=== PATIENT | female | born 1960 | race American Indian/Alaskan Native ===

== ENCOUNTER → 2018-09-01 | Outpatient (CLI) | payer BC, OTHER | LOC: DL.MRI 10:23 | PROVIDERS: ATTEND General Practice | DX: M25.571 Pain in right ankle and joints of right foot (principal); S93.491A Sprain of other ligament of right ankle, initial encounter; M65.871 Other synovitis and tenosynovitis, right ankle and foot; R60.0 Localized edema; M85.671 Other cyst of bone, right ankle and foot; X58.XXXA Exposure to other specified factors, initial encounter | CPT/HCPCS: 73721-RT ==

== ENCOUNTER 2020-02-25 11:43 | Inpatient (IN) | payer BC, OTHER ==
--- NOTE | 2020-02-25 12:10 | EDM.PDOC ---
ED HPI GENERAL MEDICAL PROBLEM - General Stated Complaint: AMBULANCE Time Seen by Provider: 02/25/20 11:58 Source of Information: Reports: Patient History Limitations: Reports: No Limitations - History of Present Illness INITIAL COMMENTS - FREE TEXT/NARRATIVE: This 59 yo male patient was brought to the ED by [facility] due to increased shortness of breath. The patient reports she was diagnosed with COVID on 02/14/20, but has had increased shortness of breath over the past 5 days. The patient reports she has not been able to catch her breath due to a constant cough. EMS reports the patient's oxygen level was 91% on room air. The patient's oxygen level has been 97% on 2 lpm via NC. Onset Date: 02/21/20 Duration: Constant, Getting Worse Location: Reports: Chest Quality: Reports: Other Severity: Severe Improves with: Reports: None Worsens with: Reports: None Context: Reports: Other Associated Symptoms: Reports: Cough, Shortness of Breath Generalized Pain Score (Numeric/FACES): 8 - Related Data Allergies Allergy/AdvReac Type Severity Reaction Status Date / Time No Known Allergies Allergy Verified 02/25/20 11:55 Past Medical History HEENT History: Reports: Impaired Vision Cardiovascular History: Reports: Hypertension - Past Surgical History Musculoskeletal Surgical History: Reports: Knee Replacement Social & Family History - Tobacco Use Tobacco Use Status *Q: Never Tobacco User Second Hand Smoke Exposure: No - Caffeine Use Caffeine Use: Reports: None - Recreational Drug Use Recreational Drug Use: No ED ROS GENERAL - Review of Systems Review Of Systems: Comprehensive ROS is negative, except as noted in HPI. ED EXAM, GENERAL - Physical Exam Exam: See Below Exam Limited By: No Limitations General Appearance: Alert, WD/WN, Moderate Distress Eye Exam: Bilateral Eye: EOMI, Normal Inspection, PERRL Ears: Normal External Exam, Normal Canal, Hearing Grossly Normal, Normal TMs Nose: Normal Inspection, Normal Mucosa, No Blood Throat/Mouth: Normal Inspection, Normal Lips, Normal Teeth, Normal Gums, Normal Oropharynx, Normal Voice, No Airway Compromise Head: Atraumatic, Normocephalic Neck: Normal Inspection, Supple, Non-Tender, Full Range of Motion Respiratory/Chest: Decreased Breath Sounds (throughout lung voss) Cardiovascular: Normal Peripheral Pulses, Regular Rate, Rhythm, No Edema, No Gallop, No JVD, No Murmur, No Rub GI/Abdominal: Normal Bowel Sounds, Soft, Non-Tender, No Organomegaly, No Disten tion, No Abnormal Bruit, No Mass (Female) Exam: Deferred Rectal (Female) Exam: Deferred Back Exam: Normal Inspection, Full Range of Motion, NT Extremities: Normal Inspection, Normal Range of Motion, Non-Tender, Normal Capillary Refill, No Pedal Edema Neurological: Alert, Oriented, CN II-XII Intact, Normal Cognition, Normal Gait, Normal Reflexes, No Motor/Sensory Deficits Psychiatric: Normal Affect, Normal Mood Skin Exam: Warm, Dry, Intact, Normal Color, No Rash Lymphatic: No Adenopathy Course - Vital Signs Last Recorded V/S: Last Vital Signs Temp 36.0 C L 02/25/20 11:45 Pulse 102 H 02/25/20 11:45 Resp 25 H 02/25/20 11:45 BP 135/76 02/25/20 11:45 Pulse Ox 95 02/25/20 11:45 - Orders/Labs/Meds Orders: Active Orders 24 hr Category Date Time Status CULTURE BLOOD [BC] Stat Lab 02/25/20 11:52 Received UA RFX AKIL AND CULT IF INDIC [URIN] Urgent Lab 02/25/20 11:38 Ordered Labs: Laboratory Tests 02/25/20 02/25/20 02/25/20 Range/Units 11:52 11:52 11:52 WBC 6.8 (5.0-10.0) 10^3/uL RBC 4.64 (4.2-5.4) 10^6/uL Hgb 13.5 (12.0-16.0) g/dL Hct 39.4 (37.0-47.0) % MCV 84.9 (80-100) fL MCH 29.1 (27.0-34.0) pg MCHC 34.3 (33.0-35.0) g/dL Plt Count 222 (150-450) 10^3/uL Neut % (Auto) 80.9 H (42.2-75.2) % Lymph % (Auto) 10.2 L (20.5-50.1) % [place] % (Auto) 8.5 H (2-8) % Eos % (Auto) 0.1 L (1.0-3.0) % Baso % (Auto) 0.3 (0.0-1.0) % Sodium 133 L (136-145) mmol/L Potassium 3.4 L (3.5-5.1) mmol/L Chloride 96 L (98-107) mmol/L Carbon Dioxide 27 (21-32) mmol/L Anion Gap 13.4 H (7-13) mEq/L BUN 9 (7-18) mg/dL Creatinine 0.74 (0.55-1.02) mg/dL Est Cr Clr Drug Dosing 68.94 mL/min Estimated GFR (MDRD) > 60 BUN/Creatinine Ratio 12.2 (No establ ref range) Glucose 268 H (74-99) mg/dL Lactic Acid 1.8 (0.4-2.0) mmol/L Calcium 8.9 (8.5-10.1) mg/dL Total Bilirubin 1.1 H (0.2-1.0) mg/dL AST 23 (15-37) U/L ALT 30 (14-59) U/L Alkaline Phosphatase 129 H (46-116) U/L Troponin I < 0.017 (0.000-0.056) ng/mL Total Protein 7.9 (6.4-8.2) g/dL Albumin 3.2 L (3.4-5.0) g/dL Globulin 4.7 Albumin/Globulin Ratio 0.68 Meds: Medications Discontinued Medications Generic Name Dose Route Start Last Admin Trade Name Freq PRN Reason Stop Dose Admin Dexamethasone Confirm 02/25/20 13:49 Dexamethasone Administered 02/25/20 13:50 Dose 8 mg .ROUTE .STK-MED ONE Departure - Departure Time of Disposition: 14:00 Disposition: Admitted As Inpatient 64 Condition: Poor Clinical Impression: Hypoxia, COVID-19 - Discharge Information *PRESCRIPTION DRUG MONITORING PROGRAM REVIEWED*: Not Applicable *COPY OF PRESCRIPTION DRUG MONITORING REPORT IN PATIENT ROQUE: Not Applicable Forms: ED Department Discharge Care Plan Goals: Discussed the patient's history, examination, lab and x-ray results with Dr. King. Dr. King accepted the patient for continued evaluation and treatment as an inpatient at [facility]. Sepsis Event Note (ED) - Evaluation Sepsis Screening Result: No Definite Risk - Focused Exam Vital Signs: Vital Signs Temp Pulse Resp BP Pulse Ox 02/25/20 11:45 36.0 C L 102 H 25 H 135/76 95 - My Orders Last 24 Hours: My Active Orders 02/25/20 11:38 UA RFX AKIL AND CULT IF INDIC [URIN] Urgent 02/25/20 11:52 CULTURE BLOOD [BC] Stat - Assessment/Plan Last 24 Hours: My Active Orders 02/25/20 11:38 UA RFX AKIL AND CULT IF INDIC [URIN] Urgent 02/25/20 11:52 CULTURE BLOOD [BC] Stat
[2020-02-25 12:24] LABS: ANION GAP 13.4 mEq/L (7-13); CHLORIDE,CL 96 mmol/L (98-107); SODIUM,NA 133 mmol/L (136-145)
--- NOTE | 2020-02-25 12:40 | CR ---
PROCEDURE INFORMATION: Exam: XR Chest, 1 View Exam date and time: 02/25/2020 12:32 PM Age: 59 years old Clinical indication: Shortness of breath; Additional info: Short of breath TECHNIQUE: Imaging protocol: XR of the chest Views: 1 view. COMPARISON: No relevant prior studies available. FINDINGS: Lungs: Lung volumes are low with patchy airspace density in both lower lobes. Findings could represent atelectasis with pneumonia also possible. Pleural space: Unremarkable. No pleural effusion. No pneumothorax. Heart/Mediastinum: Heart size is moderately prominent. Bones/joints: Unremarkable. IMPRESSION: 1. Low lung volumes with patchy density in the lower lobes bilaterally. This is most likely due to atelectasis. Pneumonia also possible.
[2020-02-25] MEDS ORDERED: Dexamethasone 4 MG/ML SDV ONE (13:49)
[2020-02-25] MEDS ORDERED: Docusate Sodium 100 MG Cap PO PRN (15:32)
[2020-02-25] MEDS ORDERED: Potassium Chloride 10 MEQ Tab.ER PO ONE (15:40)
--- NOTE | 2020-02-25 15:59 | HP ---
CHIEF COMPLAINT: Shortness of breath. HISTORY OF PRESENT ILLNESS: The patient is a 59-year-old lady admitted through the emergency room because of increasing shortness of breath. The patient mentioned that she was diagnosed with COVID-19 on 02/13, but has had increasing shortness of breath over the past 5 days. She mentioned that she is not able to catch her breath due to constant coughing and she complained of some pain in her rib cage because of the coughing spells, but she denies any orthopnea, diarrhea, vomiting, or any other associated symptoms, and she is also complaining of feeling feverish and chilly. In the emergency room, oxygenation was 91% on room air, and it increased to 97% on 2 L per nasal cannula. Because of this increasing shortness of breath, she also had a chest x-ray which showed some signs of pneumonitis on both lower lobes. She was then admitted for further evaluation and management. PAST MEDICAL HISTORY: Remarkable for knee replacement and hypertension. FAMILY HISTORY: Noncontributory. SOCIAL HISTORY: Nonsmoker, non-alcohol drinker. HOME MEDICATIONS: None. REVIEW OF SYSTEMS: As in HPI. The rest of the review of systems is negative. PHYSICAL EXAMINATION: General: The patient is alert and oriented, in [id number] respiratory distress with paroxysms of coughing spells. Vital Signs: Blood pressure is 135/76, pulse of 102, respirations of 25, saturation is 95% on 2 L per nasal cannula, and temperature of 36. HEENT: Normocephalic. There are pink palpebral conjunctivae. Sclerae anicteric. Neck: No JVD. No lymphadenopathy. Heart: Regular rate and rhythm. Normal S1 and S2. No gallops. No rubs. Lungs: Diminished breath sounds in both bases, but no significant crackles, no wheezing. Abdomen: Soft, nontender. Bowel sounds positive. Extremities: Negative for any pedal edema. No calf tenderness. LABORATORY DATA: CBC: WBC 6.8, hemoglobin is 13.5, hematocrit is 39.4, platelet is 222, neutrophils is 80.9. Comp panel: Sodium is 133, potassium is 3.4, anion gap is 13.4. Glucose is 268. Lactic acid is 1.8. Total bilirubin is 1.1. The rest of the panel unremarkable. Troponin is less than 0.017. Chest x-ray is remarkable for low lung volumes with patchy densities in the lower lobes bilaterally. This is most likely due to atelectasis and pneumonia also possible. ADMITTING DIAGNOSES: 1. COVID-19 infection. 2. Pneumonia. 3. Hypoxia. 4. Hypokalemia. TREATMENT PLAN: The patient is going to be admitted to [facility] [place] emergency department. She will be empirically started on dexamethasone IV as well as remdesivir, and also with IV antibiotics and bronchodilators, and DVT prophylaxis will also be ordered. The rest of the management as necessary, and the patient is a full code. [facility] /[id number]
[2020-02-25] MEDS: Albuterol 6.7 GM Inhaler INH SCH ×2 (17:02→21:33)
[2020-02-25] MEDS: Sodium Chloride 0.9% 1,000 ML IV SCH (17:04)
[2020-02-25] MEDS: Azithromycin 500 MG in Sodium Chloride 0.9% 250 ML IV SCH (17:09)
[2020-02-25] MEDS ORDERED: Water For Injection, Sterile 40 ML ONE (18:24)
[2020-02-25] MEDS: Formoterol/Mometasone 200-5 MCG 8.8 GM Inhaler IH SCH (19:44)
[2020-02-25] MEDS: Acetaminophen 325 MG Tab PO PRN (19:46)
[2020-02-25] MEDS: Codeine/guaiFENesin 10-100 MG/5 ML Syrup 5 ML Cup PO PRN (21:23)
[2020-02-25] MEDS: cefTRIAXone 1 GM in Sodium Chloride 0.9% 50 ML IV SCH (21:25)
[2020-02-26 06:12] LABS: ANION GAP 14.2 mEq/L (7-13); CHLORIDE,CL 105 mmol/L (98-107); SODIUM,NA 141 mmol/L (136-145)
[2020-02-26] MEDS: Formoterol/Mometasone 200-5 MCG 8.8 GM Inhaler IH SCH ×2 (06:26→17:03)
--- NOTE | 2020-02-26 09:11 | PN ---
DATE: 02/26/2020 SUBJECTIVE: The patient still has paroxysms of coughing spells, but overall the patient is feeling slightly better when compared to admission. Still has some shortness of breath though, but she denies any chest pain, headache, abdominal pain, or any other complaints. LABORATORY DATA: Lab workup this morning. CBC: WBC is 4; hemoglobin, hematocrit, and platelet count are within normal limits. D-dimer is 788. Comp panel: Glucose is 234, calcium of 8.3. The rest of the panel unremarkable. OBJECTIVE: Vital Signs: Blood pressure is 125/61, pulse 66, respirations of 26, temperature of 98.6, and saturation is 92% on 2 L per nasal cannula. Heart: Regular rate and rhythm. Normal S1 and S2. No gallops. No rubs. Lungs: Have diminished breath sounds on both bases, but no significant crackles, no wheezing; and breath sounds equal. Abdomen: Soft, nontender, bowel sounds positive. Extremities: Negative for any significant pedal edema. No calf tenderness. MEDICATIONS: Reviewed. PLAN: We will continue with her present management, continue with dexamethasone and remdesivir, and continue with the IV antibiotics (ceftriaxone and azithromycin). [facility] /[id number]
[2020-02-26] MEDS: Sodium Chloride 0.9% 1,000 ML IV SCH (09:43)
[2020-02-26] MEDS: Enoxaparin 40 MG/0.4 ML Syringe SUBCUT SCH (09:48)
[2020-02-26] MEDS: Dexamethasone 4 MG/ML SDV IVPUSH SCH (09:48)
[2020-02-26] MEDS: Albuterol 6.7 GM Inhaler INH SCH ×4 (09:51→20:27)
[2020-02-26] MEDS: Codeine/guaiFENesin 10-100 MG/5 ML Syrup 5 ML Cup PO PRN ×3 (11:02→23:56)
[2020-02-26] MEDS: Azithromycin 500 MG in Sodium Chloride 0.9% 250 ML IV SCH (16:06)
[2020-02-26] MEDS: cefTRIAXone 1 GM in Sodium Chloride 0.9% 50 ML IV SCH (16:12)
[2020-02-27 06:39] LABS: ANION GAP 13.8 mEq/L (7-13); CHLORIDE,CL 106 mmol/L (98-107); SODIUM,NA 142 mmol/L (136-145)
[2020-02-27] MEDS: Formoterol/Mometasone 200-5 MCG 8.8 GM Inhaler IH SCH ×2 (08:08→18:36)
[2020-02-27] MEDS: Albuterol 6.7 GM Inhaler INH SCH ×4 (08:09→21:29)
[2020-02-27] MEDS: Dexamethasone 4 MG/ML SDV IVPUSH SCH (10:02)
[2020-02-27] MEDS: Enoxaparin 40 MG/0.4 ML Syringe SUBCUT SCH (10:03)
[2020-02-27] MEDS: Codeine/guaiFENesin 10-100 MG/5 ML Syrup 5 ML Cup PO PRN ×3 (10:04→23:38)
--- NOTE | 2020-02-27 10:33 | PN ---
DATE: 02/27/2020 SUBJECTIVE: The patient is feeling slightly better. She still has some paroxysms of cough and still has some shortness of breath, but overall she is feeling slightly better when compared to admission. LABORATORY DATA: Lab workup this morning. Comp panel: Anion gap is 13.8, glucose is 211, LDH is 283 (improving), C-reactive protein is 6.6 (improving). Total protein is 5.8, albumin is 2.6. The rest of the panel unremarkable. OBJECTIVE: Vital Signs: Blood pressure is 136/69, pulse of 79, respirations of 16, temperature of 97.4, saturation is 90% on 2 L. Heart: Regular rate and rhythm. Normal S1 and S2. No gallops. No rubs. Lungs: Diminished breath sounds on both bases. No significant crackles. No wheezing. Abdomen: Soft, nontender. Bowel sounds positive. Extremities: Negative for any pedal edema. No calf tenderness. MEDICATIONS: Reviewed. PLAN: We will continue with her present management. [facility] /[id number]
[2020-02-27] MEDS: Ondansetron 4 MG Tab.DIS PO PRN (15:49)
[2020-02-27] MEDS: Acetaminophen 325 MG Tab PO PRN ×2 (15:49→21:25)
[2020-02-27] MEDS: Azithromycin 500 MG in Sodium Chloride 0.9% 250 ML IV SCH ×2 (15:55→16:11)
[2020-02-27] MEDS: cefTRIAXone 1 GM in Sodium Chloride 0.9% 50 ML IV SCH (17:31)
[2020-02-28] MEDS: Codeine/guaiFENesin 10-100 MG/5 ML Syrup 5 ML Cup PO PRN ×3 (06:08→20:09)
[2020-02-28] MEDS: Ondansetron 4 MG Tab.DIS PO PRN (06:08)
--- NOTE | 2020-02-28 09:02 | PN ---
DATE: 02/28/2020 SUBJECTIVE: The patient continued to have coughing spells and still has some shortness of breath. The patient mentioned that she is feeling slightly better as she is able to bring out her phlegm with coughing. Otherwise, no other complaints. Denies any chest pain, headache, nor any other significant complaints. Urinalysis done yesterday was unremarkable. OBJECTIVE: Vital Signs: Blood pressure is 120/59, pulse of 56, respirations of 18, temperature of 98.3, saturation is 95% on 3 L per nasal cannula. Heart: Regular rate and rhythm. Normal S1 and S2. No gallops. No rubs. Lungs: Diminished breath sounds on both bases, still with coarse breath sounds bilaterally. Abdomen: Soft, nontender. Extremities: Negative for any pedal edema. No calf tenderness. MEDICATIONS: Reviewed. PLAN: We will continue with her IV antibiotics and continue with dexamethasone IV as well as remdesivir and I am also going to give the patient a convalescent plasma as her saturation is still not significantly improved. [facility] /[id number]
[2020-02-28] MEDS: Dexamethasone 4 MG/ML SDV IVPUSH SCH (09:35)
[2020-02-28] MEDS: Enoxaparin 40 MG/0.4 ML Syringe SUBCUT SCH (09:36)
[2020-02-28] MEDS: Formoterol/Mometasone 200-5 MCG 8.8 GM Inhaler IH SCH ×2 (09:37→17:38)
[2020-02-28] MEDS: Albuterol 6.7 GM Inhaler INH SCH ×4 (09:37→21:07)
--- NOTE | 2020-02-28 12:43 | HP ---
ADDENDUM: PLAN: I spoke with the patient and provided information about remdesivir treatment as being under emergency use authorization and not fully FDA approved or reviewed. I discussed potential side effects including liver abnormalities and also discussed other potential treatment options that are currently not FDA approved to treat COVID-19. The patient gives permission for remdesivir. [facility] /[id number]
[2020-02-28] MEDS: Acetaminophen 325 MG Tab PO PRN (13:39)
[2020-02-28] MEDS: cefTRIAXone 1 GM in Sodium Chloride 0.9% 50 ML IV SCH (16:20)
[2020-02-28] MEDS: Azithromycin 500 MG in Sodium Chloride 0.9% 250 ML IV SCH (16:51)
[2020-02-28] MEDS: Benzocaine/Cetylpyridinium/Menthol Lozenge MUCMEM PRN (20:09)
[2020-02-29] MEDS: Acetaminophen 325 MG Tab PO PRN ×2 (03:13→14:16)
[2020-02-29] MEDS: Benzocaine/Cetylpyridinium/Menthol Lozenge MUCMEM PRN ×3 (03:13→19:23)
[2020-02-29] MEDS: Codeine/guaiFENesin 10-100 MG/5 ML Syrup 5 ML Cup PO PRN ×2 (03:13→19:23)
[2020-02-29] MEDS: Formoterol/Mometasone 200-5 MCG 8.8 GM Inhaler IH SCH ×2 (06:20→17:07)
[2020-02-29] MEDS: Dexamethasone 4 MG/ML SDV IVPUSH SCH (07:59)
[2020-02-29] MEDS: Enoxaparin 40 MG/0.4 ML Syringe SUBCUT SCH (07:59)
[2020-02-29] MEDS: Albuterol 6.7 GM Inhaler INH SCH ×4 (07:59→21:01)
[2020-02-29] MEDS ORDERED: Dexamethasone 4 MG/ML SDV IV ONE (10:37)
[2020-02-29] MEDS: cefTRIAXone 1 GM in Sodium Chloride 0.9% 50 ML IV SCH (15:54)
[2020-02-29] MEDS: Azithromycin 500 MG in Sodium Chloride 0.9% 250 ML IV SCH (16:11)
[2020-02-29 19:30] LABS: ANION GAP 12.3 mEq/L (7-13); CHLORIDE,CL 96 mmol/L (98-107); SODIUM,NA 133 mmol/L (136-145)
--- NOTE | 2020-02-29 19:47 | PCM.PN ---
- General Info Date of Service: 02/29/20 Subjective Update: Patient seen and examined today. Patient still having significant productive cough. Denies chest pain. Remains short of breath but now off oxygen. Afebrile overnight. Discussed with patient about taking convalescent plasma, however patient refuses. Functional Status: Reports: Pain Controlled - Review of Systems General: Reports: Weakness HEENT: Reports: No Symptoms Pulmonary: Reports: Shortness of Breath, Cough, Sputum Cardiovascular: Reports: No Symptoms Gastrointestinal: Reports: No Symptoms Genitourinary: Reports: No Symptoms Musculoskeletal: Reports: No Symptoms Skin: Reports: No Symptoms Neurological: Reports: No Symptoms Psychiatric: Reports: No Symptoms - Patient Data Vitals - Most Recent: Last Vital Signs Temp 98.4 F 02/29/20 19:19 Pulse 60 02/29/20 19:19 Resp 20 02/29/20 19:19 BP 110/45 L 02/29/20 19:19 Pulse Ox 92 L 02/29/20 19:19 Weight - Most Recent: 199 lb 9.6 oz I&O - Last 24 Hours: Intake & Output 02/29/20 02/29/20 02/29/20 06:59 14:59 22:59 Intake Total 702 1250 Balance 702 1250 Lab Results Last 24 Hours: Laboratory Results - last 24 hr 02/29/20 02/29/20 02/29/20 Range/Units 06:09 18:49 18:49 WBC 5.2 (5.0-10.0) 10^3/uL RBC 4.23 (4.2-5.4) 10^6/uL Hgb 12.2 (12.0-16.0) g/dL Hct 36.3 L (37.0-47.0) % MCV 85.8 (80-100) fL MCH 28.8 (27.0-34.0) pg MCHC 33.6 (33.0-35.0) g/dL Plt Count 347 D (150-450) 10^3/uL Neut % (Auto) 76.5 H (42.2-75.2) % Lymph % (Auto) 13.4 L (20.5-50.1) % Vance % (Auto) 9.7 H (2-8) % Eos % (Auto) 0.2 L (1.0-3.0) % Baso % (Auto) 0.2 (0.0-1.0) % Add Manual Diff Yes D-Dimer, Quantitative (0-400) ng/mL Sodium 133 L (136-145) mmol/L Potassium 4.3 (3.5-5.1) mmol/L Chloride 96 L (98-107) mmol/L Carbon Dioxide 29 (21-32) mmol/L Anion Gap 12.3 (7-13) mEq/L BUN 13 (7-18) mg/dL Creatinine 0.81 (0.55-1.02) mg/dL Est Cr Clr Drug Dosing 62.98 mL/min Estimated GFR (MDRD) > 60 Glucose 386 H (74-99) mg/dL Calcium 8.7 (8.5-10.1) mg/dL Total Bilirubin 0.5 (0.2-1.0) mg/dL Direct Bilirubin 0.2 (0.0-0.2) mg/dL Indirect Bilirubin 0.3 AST 18 (15-37) U/L ALT 27 (14-59) U/L Alkaline Phosphatase 88 (46-116) U/L Lactate Dehydrogenase 205 (81-234) U/L Total Protein 6.1 L (6.4-8.2) g/dL Albumin 2.6 L (3.4-5.0) g/dL Globulin 3.5 Albumin/Globulin Ratio 0.74 10/21/20 Range/Units 18:49 WBC (5.0-10.0) 10^3/uL RBC (4.2-5.4) 10^6/uL Hgb (12.0-16.0) g/dL Hct (37.0-47.0) % MCV (80-100) fL MCH (27.0-34.0) pg MCHC (33.0-35.0) g/dL Plt Count (150-450) 10^3/uL Neut % (Auto) (42.2-75.2) % Lymph % (Auto) (20.5-50.1) % Vance % (Auto) (2-8) % Eos % (Auto) (1.0-3.0) % Baso % (Auto) (0.0-1.0) % Add Manual Diff D-Dimer, Quantitative 464 H (0-400) ng/mL Sodium (136-145) mmol/L Potassium (3.5-5.1) mmol/L Chloride (98-107) mmol/L Carbon Dioxide (21-32) mmol/L Anion Gap (7-13) mEq/L BUN (7-18) mg/dL Creatinine (0.55-1.02) mg/dL Est Cr Clr Drug Dosing mL/min Estimated GFR (MDRD) Glucose (74-99) mg/dL Calcium (8.5-10.1) mg/dL Total Bilirubin (0.2-1.0) mg/dL Direct Bilirubin (0.0-0.2) mg/dL Indirect Bilirubin AST (15-37) U/L ALT (14-59) U/L Alkaline Phosphatase (46-116) U/L Lactate Dehydrogenase (81-234) U/L Total Protein (6.4-8.2) g/dL Albumin (3.4-5.0) g/dL Globulin Albumin/Globulin Ratio Freddie Results Last 24 Hours: Microbiology 02/25/20 11:52 Aerobic Blood Culture - Preliminary Blood - Arm, Right NO GROWTH AFTER 4 DAYS Anaerobic Blood Culture - Preliminary NO GROWTH AFTER 4 DAYS Med Orders - Current: Current Medications Acetaminophen (Tylenol) 650 mg PO Q4H PRN PRN Reason: Pain (Mild 1-3)/fever Last Admin: 02/29/20 14:16 Dose: 650 mg Documented by: Albuterol (Proventil Hfa) 0 gm INH QID [facility] Last Admin: 02/29/20 17:07 Dose: 2 puff Documented by: Benzocaine/Menthol (Cepacol Sore Throat) 1 lozenge MUCMEM Q6HR PRN PRN Reason: Sore Throat Last Admin: 02/29/20 19:23 Dose: 1 lozenge Documented by: Dexamethasone (Dexamethasone) 6 mg IVPUSH DAILY [facility] Stop: 03/06/20 09:01 Last Admin: 02/29/20 07:59 Dose: 6 mg Documented by: Docusate Sodium (Colace) 100 mg PO BID PRN PRN Reason: Constipation Enoxaparin Sodium (Lovenox) 40 mg SUBCUT DAILY [facility] Last Admin: 02/29/20 07:59 Dose: 40 mg Documented by: Guaifenesin/Codeine Phosphate (Robitussin Ac) 5 ml PO Q6H PRN PRN Reason: Cough Last Admin: 02/29/20 19:23 Dose: 5 ml Documented by: Ceftriaxone Sodium 1 gm/ (Sodium Chloride) 50 mls @ 100 mls/hr IV Q24H [facility] Last Admin: 02/29/20 15:54 Dose: 100 mls/hr Documented by: Azithromycin 500 mg/ Sodium (Chloride) 250 mls @ 250 mls/hr IV Q24H [facility] Last Admin: 02/29/20 16:11 Dose: 250 mls/hr Documented by: Mometasone Furoate/Formoterol Fumar (Dulera 200-5 Mcg) 2 puff IH BIDRT [facility] Last Admin: 02/29/20 17:07 Dose: 2 puff Documented by: Ondansetron HCl (Zofran Odt) 4 mg PO Q4H PRN PRN Reason: Nausea/Vomiting Last Admin: 02/28/20 06:08 Dose: 4 mg Documented by: Discontinued Medications Dexamethasone (Dexamethasone) Confirm Administered Dose 8 mg .ROUTE .STK-MED ONE Stop: 02/25/20 13:50 Last Admin: 02/25/20 18:08 Dose: Not Given Documented by: Dexamethasone (Dexamethasone) 6 mg IV .STK-MED ONE Stop: 02/29/20 10:38 Sodium Chloride (Normal Saline) 1,000 mls @ 75 mls/hr IV ASDIRECTED [facility] Last Admin: 02/25/20 17:04 Dose: 75 mls/hr Documented by: Remdesivir 200 mg/ Sodium (Chloride) 210 mls @ 210 mls/hr IV ONETIME ONE Stop: 02/25/20 15:36 Last Admin: 02/25/20 19:47 Dose: 210 mls/hr Documented by: Remdesivir 100 mg/ Sodium (Chloride) 230 mls @ 230 mls/hr IV Q24H [facility] Stop: 02/29/20 09:01 Last Infusion: 02/28/20 10:40 Dose: Infused Documented by: Azithromycin 500 mg/ Sodium (Chloride) 250 mls @ 250 mls/hr IV Q24H [facility] Last Infusion: 02/27/20 17:42 Dose: Infused Documented by: Sterile Water (Sterile Water For Injection) Confirm Administered Dose 40 mls @ as directed .ROUTE .STK-MED ONE Stop: 02/25/20 18:25 Last Admin: 02/25/20 20:21 Dose: Not Given Documented by: Remdesivir 100 mg/ Sodium (Chloride) 230 mls @ 230 mls/hr IV Q24H [facility] Stop: 02/29/20 10:29 Last Admin: 02/29/20 09:05 Dose: 230 mls/hr Documented by: Potassium Chloride (Klor-Con 10) 40 meq PO ONETIME ONE Stop: 02/25/20 15:41 Last Admin: 02/25/20 17:00 Dose: 40 meq Documented by: - Exam General: Alert, Oriented HEENT: Pupils Equal, Pupils Reactive, EOMI, Mucous Membr. Moist/[place] Neck: Supple Lungs: Crackles, Rhonchi Cardiovascular: Regular Rate, Regular Rhythm GI/Abdominal Exam: Normal Bowel Sounds, Soft, Non-Tender, No Organomegaly, No Distention, No Abnormal Bruit, No Mass, Pelvis Stable Back Exam: Normal Inspection, Full Range of Motion Extremities: Normal Inspection, Normal Range of Motion, Non-Tender, No Pedal Edema, Normal Capillary Refill Skin: Warm, Dry, Intact Neurological: No New Focal Deficit Psy/Mental Status: Alert, Normal Affect, Normal Mood Sepsis Event Note - Evaluation Sepsis Screening Result: No Definite Risk - Focused Exam Vital Signs: Vital Signs Temp Pulse Resp BP Pulse Ox 02/29/20 19:19 98.4 F 60 20 110/45 L 92 L 02/29/20 16:00 98.2 F 59 L 20 110/54 L 93 L 02/29/20 12:00 98.6 F 99 20 112/57 L 90 L 02/29/20 07:57 98.3 F 58 L 20 114/58 L 93 L - Problem List Review Problem List Initiated/Reviewed/Updated: Yes - My Orders Last 24 Hours: My Active Orders 02/29/20 18:49 CBC WITH AUTO DIFF [HEME] Routine MANUAL DIFFERENTIAL QA/NC [HEME] Routine - Plan Plan:: COVID-19 associated pneumonia Probable bacterial pneumonia Acute hypoxia respiratory failure Patient refused convalescent plasma Continue dexamethasone as well as remdesivir Continue antibiotics Oxygen supplementation as needed Continue DVT prophylaxis Hypokalemia Replaced
[2020-03-01] MEDS: Codeine/guaiFENesin 10-100 MG/5 ML Syrup 5 ML Cup PO PRN ×2 (06:04→21:01)
[2020-03-01] MEDS: Acetaminophen 325 MG Tab PO PRN ×3 (06:04→21:01)
[2020-03-01] MEDS: Benzocaine/Cetylpyridinium/Menthol Lozenge MUCMEM PRN ×3 (06:04→21:01)
[2020-03-01] MEDS: Formoterol/Mometasone 200-5 MCG 8.8 GM Inhaler IH SCH ×2 (06:08→17:03)
[2020-03-01] MEDS: Enoxaparin 40 MG/0.4 ML Syringe SUBCUT SCH (07:59)
[2020-03-01] MEDS: Albuterol 6.7 GM Inhaler INH SCH ×4 (07:59→21:04)
[2020-03-01] MEDS: Dexamethasone 4 MG/ML SDV IVPUSH SCH (07:59)
--- NOTE | 2020-03-01 11:29 | PCM.PN ---
- General Info Date of Service: 03/01/20 Subjective Update: Patient seen and examined today. Patient still having significant productive cough. Dyspnea on exertion. Afebrile overnight. Functional Status: Reports: Pain Controlled - Review of Systems General: Reports: No Symptoms HEENT: Reports: No Symptoms Pulmonary: Reports: Shortness of Breath, Cough Cardiovascular: Reports: No Symptoms Gastrointestinal: Reports: No Symptoms Genitourinary: Reports: No Symptoms Musculoskeletal: Reports: No Symptoms Skin: Reports: No Symptoms Neurological: Reports: No Symptoms Psychiatric: Reports: No Symptoms - Patient Data Vitals - Most Recent: Last Vital Signs Temp 98.2 F 03/01/20 08:00 Pulse 56 L 03/01/20 08:00 Resp 20 03/01/20 08:00 BP 111/56 L 03/01/20 08:00 Pulse Ox 95 03/01/20 08:00 Weight - Most Recent: 199 lb 9.6 oz I&O - Last 24 Hours: Intake & Output 02/29/20 03/01/20 03/01/20 22:59 06:59 14:59 Intake Total 1250 800 Balance 1250 800 Lab Results Last 24 Hours: Laboratory Results - last 24 hr 02/29/20 02/29/20 02/29/20 Range/Units 18:49 18:49 18:49 WBC 5.2 (5.0-10.0) 10^3/uL RBC 4.23 (4.2-5.4) 10^6/uL Hgb 12.2 (12.0-16.0) g/dL Hct 36.3 L (37.0-47.0) % MCV 85.8 (80-100) fL MCH 28.8 (27.0-34.0) pg MCHC 33.6 (33.0-35.0) g/dL Plt Count 347 D (150-450) 10^3/uL Neut % (Auto) 76.5 H (42.2-75.2) % Lymph % (Auto) 13.4 L (20.5-50.1) % [place] % (Auto) 9.7 H (2-8) % Eos % (Auto) 0.2 L (1.0-3.0) % Baso % (Auto) 0.2 (0.0-1.0) % Add Manual Diff Yes Neutrophils % (Manual) 69 (42-75) % Band Neutrophils % 9 % Lymphocytes % (Manual) 14 L (20-50) % Monocytes % (Manual) 8 (2-8) % D-Dimer, Quantitative 464 H (0-400) ng/mL Sodium 133 L (136-145) mmol/L Potassium 4.3 (3.5-5.1) mmol/L Chloride 96 L (98-107) mmol/L Carbon Dioxide 29 (21-32) mmol/L Anion Gap 12.3 (7-13) mEq/L BUN 13 (7-18) mg/dL Creatinine 0.81 (0.55-1.02) mg/dL Est Cr Clr Drug Dosing 62.98 mL/min Estimated GFR (MDRD) > 60 Glucose 386 H (74-99) mg/dL Calcium 8.7 (8.5-10.1) mg/dL Lactate Dehydrogenase 205 (81-234) U/L Freddie Results Last 24 Hours: Microbiology 02/25/20 11:52 Aerobic Blood Culture - Preliminary Blood - Arm, Right NO GROWTH AFTER 4 DAYS Anaerobic Blood Culture - Preliminary NO GROWTH AFTER 4 DAYS Med Orders - Current: Current Medications Acetaminophen (Tylenol) 650 mg PO Q4H PRN PRN Reason: Pain (Mild 1-3)/fever Last Admin: 03/01/20 06:04 Dose: 650 mg Documented by: Albuterol (Proventil Hfa) 0 gm INH QID [facility] Last Admin: 03/01/20 07:59 Dose: 2 puff Documented by: Benzocaine/Menthol (Cepacol Sore Throat) 1 lozenge MUCMEM Q6HR PRN PRN Reason: Sore Throat Last Admin: 03/01/20 06:04 Dose: 1 lozenge Documented by: Dexamethasone (Dexamethasone) 6 mg IVPUSH DAILY [facility] Stop: 03/06/20 09:01 Last Admin: 03/01/20 07:59 Dose: 6 mg Documented by: Docusate Sodium (Colace) 100 mg PO BID PRN PRN Reason: Constipation Enoxaparin Sodium (Lovenox) 40 mg SUBCUT DAILY [facility] Last Admin: 03/01/20 07:59 Dose: 40 mg Documented by: Guaifenesin/Codeine Phosphate (Robitussin Ac) 5 ml PO Q6H PRN PRN Reason: Cough Last Admin: 03/01/20 06:04 Dose: 5 ml Documented by: Ceftriaxone Sodium 1 gm/ (Sodium Chloride) 50 mls @ 100 mls/hr IV Q24H [facility] Last Admin: 02/29/20 15:54 Dose: 100 mls/hr Documented by: Azithromycin 500 mg/ Sodium (Chloride) 250 mls @ 250 mls/hr IV Q24H [facility] Last Admin: 02/29/20 16:11 Dose: 250 mls/hr Documented by: Mometasone Furoate/Formoterol Fumar (Dulera 200-5 Mcg) 2 puff IH BIDRT [facility] Last Admin: 03/01/20 06:08 Dose: 2 puff Documented by: Ondansetron HCl (Zofran Odt) 4 mg PO Q4H PRN PRN Reason: Nausea/Vomiting Last Admin: 02/28/20 06:08 Dose: 4 mg Documented by: Discontinued Medications Dexamethasone (Dexamethasone) Confirm Administered Dose 8 mg .ROUTE .STK-MED ONE Stop: 02/25/20 13:50 Last Admin: 02/25/20 18:08 Dose: Not Given Documented by: Dexamethasone (Dexamethasone) 6 mg IV .STK-MED ONE Stop: 02/29/20 10:38 Sodium Chloride (Normal Saline) 1,000 mls @ 75 mls/hr IV ASDIRECTED [facility] Last Admin: 02/25/20 17:04 Dose: 75 mls/hr Documented by: Remdesivir 200 mg/ Sodium (Chloride) 210 mls @ 210 mls/hr IV ONETIME ONE Stop: 02/25/20 15:36 Last Admin: 02/25/20 19:47 Dose: 210 mls/hr Documented by: Remdesivir 100 mg/ Sodium (Chloride) 230 mls @ 230 mls/hr IV Q24H [facility] Stop: 02/29/20 09:01 Last Infusion: 02/28/20 10:40 Dose: Infused Documented by: Azithromycin 500 mg/ Sodium (Chloride) 250 mls @ 250 mls/hr IV Q24H [facility] Last Infusion: 02/27/20 17:42 Dose: Infused Documented by: Sterile Water (Sterile Water For Injection) Confirm Administered Dose 40 mls @ as directed .ROUTE .STK-MED ONE Stop: 02/25/20 18:25 Last Admin: 02/25/20 20:21 Dose: Not Given Documented by: Remdesivir 100 mg/ Sodium (Chloride) 230 mls @ 230 mls/hr IV Q24H [facility] Stop: 02/29/20 10:29 Last Admin: 02/29/20 09:05 Dose: 230 mls/hr Documented by: Potassium Chloride (Klor-Con 10) 40 meq PO ONETIME ONE Stop: 02/25/20 15:41 Last Admin: 02/25/20 17:00 Dose: 40 meq Documented by: - Exam Quality Assessment: Supplemental Oxygen General: Alert, Oriented HEENT: Pupils Equal, Pupils Reactive, EOMI, Mucous Membr. Moist/[place] Neck: Supple Lungs: Rhonchi Cardiovascular: Regular Rate, Regular Rhythm GI/Abdominal Exam: Normal Bowel Sounds, Soft, Non-Tender, No Organomegaly, No Distention, No Abnormal Bruit, No Mass, Pelvis Stable Back Exam: Normal Inspection, Full Range of Motion Extremities: Normal Inspection, Normal Range of Motion, Non-Tender, No Pedal Edema, Normal Capillary Refill Skin: Warm, Dry, Intact Neurological: No New Focal Deficit Psy/Mental Status: Alert, Normal Affect, Normal Mood Sepsis Event Note - Evaluation Sepsis Screening Result: No Definite Risk - Focused Exam Vital Signs: Vital Signs Temp Pulse Resp BP BP Pulse Ox 03/01/20 08:00 98.2 F 56 L 20 111/56 L 95 03/01/20 03:30 97.8 F 64 20 111/80 94 L - Problem List Review Problem List Initiated/Reviewed/Updated: Yes - Plan Plan:: COVID-19 associated pneumonia Probable bacterial pneumonia Acute hypoxia respiratory failure Patient refused convalescent plasma Continue dexamethasone as well as remdesivir Continue antibiotics Oxygen supplementation as needed Continue DVT prophylaxis Hypokalemia Replaced
[2020-03-01] MEDS ORDERED: 50% Dextrose in Water 50 ML Syringe IV PRN ×2 (11:35→16:53)
[2020-03-01] MEDS ORDERED: Glucagon,Human Recombinant 1 MG Vial IM PRN ×2 (11:35→16:53)
[2020-03-01] MEDS: cefTRIAXone 1 GM in Sodium Chloride 0.9% 50 ML IV SCH (16:20)
[2020-03-01] MEDS ORDERED: Insulin Lispro 100 Units/ML 3 ML Vial SUBCUT ONE (16:53)
[2020-03-01] MEDS: Azithromycin 500 MG in Sodium Chloride 0.9% 250 ML IV SCH (16:58)
[2020-03-01] MEDS ORDERED: Sodium Chloride 0.9% 500 ML IV SCH (17:00)
[2020-03-01] MEDS: Insulin Lispro 100 Units/ML 3 ML Vial SUBCUT PRN (21:10)
[2020-03-02 07:30] LABS: ANION GAP 12.7 mEq/L (7-13); CHLORIDE,CL 100 mmol/L (98-107); SODIUM,NA 136 mmol/L (136-145)
[2020-03-02] MEDS: Formoterol/Mometasone 200-5 MCG 8.8 GM Inhaler IH SCH (08:20)
[2020-03-02] MEDS: Albuterol 6.7 GM Inhaler INH SCH ×2 (08:21→12:14)
[2020-03-02] MEDS: Enoxaparin 40 MG/0.4 ML Syringe SUBCUT SCH (08:21)
[2020-03-02] MEDS: Dexamethasone 4 MG/ML SDV IVPUSH SCH (08:21)
[2020-03-02] MEDS: Insulin Lispro 100 Units/ML 3 ML Vial SUBCUT PRN ×2 (08:25→12:15)
--- NOTE | 2020-03-02 14:42 | PCM.DCSUM1 ---
Discharge Summary - Hospital Course Free Text/Narrative:: Patient is a 59-year-old female who presented with increasing shortness of breath and cough. She had been positive for COVID-19 about 11 days prior to admission. Patient required oxygen by nasal cannula. X-ray showed patchy densities in the lower lobes bilaterally. Patient was treated for COVID-19 associated pneumonia with probable bacterial pneumonia with dexamethasone, remdesivir, and antibiotics. Clinical status improved prior to discharge. Diagnosis: Stroke: No - Discharge Data Discharge Date: 03/02/20 Discharge Disposition: Home, Self-Care 01 Condition: Good - Referral to Home Health Primary Care Physician: [facility] [place] - Discharge Plan *PRESCRIPTION DRUG MONITORING PROGRAM REVIEWED*: Not Applicable *COPY OF PRESCRIPTION DRUG MONITORING REPORT IN PATIENT [place]: Not Applicable Prescriptions/Med Rec: dexAMETHasone [Decadron] 6 mg PO DAILY #3 tablet Codeine/guaiFENesin [Robitussin AC] 5 ml PO Q6H PRN #1 cup PRN Reason: Cough Rivaroxaban [Xarelto] 10 mg PO DAILY #30 tab Home Medications: Home Meds Codeine/guaiFENesin [Robitussin AC] 5 ml PO Q6H PRN #1 cup 03/02/20 [Rx] Rivaroxaban [Xarelto] 10 mg PO DAILY #30 tab 03/02/20 [Rx] dexAMETHasone [Decadron] 6 mg PO DAILY #3 tablet 03/02/20 [Rx] Patient Handouts: COVID-19 Frequently Asked Questions, COVID-19: How to Protect Yourself and Others - [facility] [place], Infection Prevention in the Home, Prevent the Spread of COVID-19 if You Are Sick - [facility] [place] Referrals: [facility] [Ordering Only Provider] - - Discharge Summary/Plan Comment DC Time >30 min.: Yes - General Info Date of Service: 03/02/20 Admission Dx/Problem (Free Text: Acute hypoxic respiratory failure due to COVID-19 associated pneumonia Subjective Update: Patient seen and examined today. Patient still having cough but significantly improved. No longer requiring oxygen. Afebrile overnight. Functional Status: Reports: Pain Controlled - Review of Systems General: Reports: No Symptoms HEENT: Reports: No Symptoms Pulmonary: Reports: Cough Cardiovascular: Reports: No Symptoms Gastrointestinal: Reports: No Symptoms Genitourinary: Reports: No Symptoms Musculoskeletal: Reports: No Symptoms Skin: Reports: No Symptoms Neurological: Reports: No Symptoms Psychiatric: Reports: No Symptoms - Patient Data Vitals - Most Recent: Last Vital Signs Temp 98.2 F 03/02/20 12:00 Pulse 66 03/02/20 12:00 Resp 18 03/02/20 12:00 BP 105/61 03/02/20 12:00 Pulse Ox 92 L 03/02/20 12:00 Weight - Most Recent: 199 lb 9.6 oz I&O - Last 24 hours: Intake & Output 03/01/20 03/02/20 03/02/20 22:59 06:59 14:59 Intake Total 240 1080 Balance 240 1080 Lab Results - Last 24 hrs: Laboratory Results - last 24 hr 03/01/20 03/01/20 03/01/20 Range/Units 12:30 16:23 21:06 WBC (5.0-10.0) 10^3/uL RBC (4.2-5.4) 10^6/uL Hgb (12.0-16.0) g/dL Hct (37.0-47.0) % MCV (80-100) fL MCH (27.0-34.0) pg MCHC (33.0-35.0) g/dL Plt Count (150-450) 10^3/uL Neut % (Auto) (42.2-75.2) % Lymph % (Auto) (20.5-50.1) % [place] % (Auto) (2-8) % Eos % (Auto) (1.0-3.0) % Baso % (Auto) (0.0-1.0) % D-Dimer, Quantitative (0-400) ng/mL Sodium (136-145) mmol/L Potassium (3.5-5.1) mmol/L Chloride (98-107) mmol/L Carbon Dioxide (21-32) mmol/L Anion Gap (7-13) mEq/L BUN (7-18) mg/dL Creatinine (0.55-1.02) mg/dL Est Cr Clr Drug Dosing mL/min Estimated GFR (MDRD) Glucose (74-99) mg/dL POC Glucose 406 H* 362 H (70-105) mg/dl Calcium (8.5-10.1) mg/dL Ferritin (8-252) mg/mL Lactate Dehydrogenase (81-234) U/L Procalcitonin <0.05 (<0.10) ng/mL 03/02/20 03/02/20 03/02/20 Range/Units 06:25 06:25 06:25 WBC 7.5 (5.0-10.0) 10^3/uL RBC 4.67 (4.2-5.4) 10^6/uL Hgb 13.6 (12.0-16.0) g/dL Hct 39.9 (37.0-47.0) % MCV 85.4 (80-100) fL MCH 29.1 (27.0-34.0) pg MCHC 34.1 (33.0-35.0) g/dL Plt Count 464 H D (150-450) 10^3/uL Neut % (Auto) 56.8 (42.2-75.2) % Lymph % (Auto) 29.2 (20.5-50.1) % [place] % (Auto) 12.4 H (2-8) % Eos % (Auto) 1.2 (1.0-3.0) % Baso % (Auto) 0.4 (0.0-1.0) % D-Dimer, Quantitative 606 H (0-400) ng/mL Sodium 136 (136-145) mmol/L Potassium 3.7 (3.5-5.1) mmol/L Chloride 100 (98-107) mmol/L Carbon Dioxide 27 (21-32) mmol/L Anion Gap 12.7 (7-13) mEq/L BUN 10 (7-18) mg/dL Creatinine 0.65 (0.55-1.02) mg/dL Est Cr Clr Drug Dosing 78.48 mL/min Estimated GFR (MDRD) > 60 Glucose 194 H (74-99) mg/dL POC Glucose (70-105) mg/dl Calcium 8.9 (8.5-10.1) mg/dL Ferritin (8-252) mg/mL Lactate Dehydrogenase 209 (81-234) U/L Procalcitonin (<0.10) ng/mL 03/02/20 03/02/20 03/02/20 Range/Units 06:25 08:18 12:12 WBC (5.0-10.0) 10^3/uL RBC (4.2-5.4) 10^6/uL Hgb (12.0-16.0) g/dL Hct (37.0-47.0) % MCV (80-100) fL MCH (27.0-34.0) pg MCHC (33.0-35.0) g/dL Plt Count (150-450) 10^3/uL Neut % (Auto) (42.2-75.2) % Lymph % (Auto) (20.5-50.1) % [place] % (Auto) (2-8) % Eos % (Auto) (1.0-3.0) % Baso % (Auto) (0.0-1.0) % D-Dimer, Quantitative (0-400) ng/mL Sodium (136-145) mmol/L Potassium (3.5-5.1) mmol/L Chloride (98-107) mmol/L Carbon Dioxide (21-32) mmol/L Anion Gap (7-13) mEq/L BUN (7-18) mg/dL Creatinine (0.55-1.02) mg/dL Est Cr Clr Drug Dosing mL/min Estimated GFR (MDRD) Glucose (74-99) mg/dL POC Glucose 258 H 378 H (70-105) mg/dl Calcium (8.5-10.1) mg/dL Ferritin 807 H (8-252) mg/mL Lactate Dehydrogenase (81-234) U/L Procalcitonin (<0.10) ng/mL [facility] Results - Last 24 hrs: Microbiology 02/25/20 11:52 Aerobic Blood Culture - Final Blood - Arm, Right NO GROWTH AFTER 5 DAYS Anaerobic Blood Culture - Final NO GROWTH AFTER 5 DAYS Med Orders - Current: Current Medications Acetaminophen (Tylenol) 650 mg PO Q4H PRN PRN Reason: Pain (Mild 1-3)/fever Last Admin: 03/01/20 21:01 Dose: 650 mg Documented by: Albuterol (Proventil Hfa) 0 gm INH QID [facility] Last Admin: 03/02/20 12:14 Dose: 2 puff Documented by: Benzocaine/Menthol (Cepacol Sore Throat) 1 lozenge MUCMEM Q6HR PRN PRN Reason: Sore Throat Last Admin: 03/01/20 21:01 Dose: 1 lozenge Documented by: Dexamethasone (Dexamethasone) 6 mg IVPUSH DAILY [facility] Stop: 03/06/20 09:01 Last Admin: 03/02/20 08:21 Dose: 6 mg Documented by: Dextrose/Water (Dextrose 50% In Water) 50 ml IV ASDIRECTED PRN PRN Reason: Hypoglycemia Docusate Sodium (Colace) 100 mg PO BID PRN PRN Reason: Constipation Enoxaparin Sodium (Lovenox) 40 mg SUBCUT DAILY [facility] Last Admin: 03/02/20 08:21 Dose: 40 mg Documented by: Glucagon (Glucagen) 1 mg IM ASDIRECTED PRN PRN Reason: Hypoglycemia Guaifenesin/Codeine Phosphate (Robitussin Ac) 5 ml PO Q6H PRN PRN Reason: Cough Last Admin: 03/01/20 21:01 Dose: 5 ml Documented by: Ceftriaxone Sodium 1 gm/ (Sodium Chloride) 50 mls @ 100 mls/hr IV Q24H [facility] Stop: 03/02/20 23:00 Last Admin: 03/01/20 16:20 Dose: 100 mls/hr Documented by: Azithromycin 500 mg/ Sodium (Chloride) 250 mls @ 250 mls/hr IV Q24H [facility] Stop: 03/02/20 23:00 Last Admin: 03/01/20 16:58 Dose: 250 mls/hr Documented by: Insulin Human Lispro (Humalog) 0 unit SUBCUT WITHMEALSANDBED PRN; Protocol PRN Reason: Hyperglycemia Last Admin: 03/02/20 12:15 Dose: 5 units Documented by: Mometasone Furoate/Formoterol Fumar (Dulera 200-5 Mcg) 2 puff IH BIDRT [facility] Last Admin: 03/02/20 08:20 Dose: 2 puff Documented by: Ondansetron HCl (Zofran Odt) 4 mg PO Q4H PRN PRN Reason: Nausea/Vomiting Last Admin: 02/28/20 06:08 Dose: 4 mg Documented by: Discontinued Medications Dexamethasone (Dexamethasone) Confirm Administered Dose 8 mg .ROUTE .STK-MED ONE Stop: 02/25/20 13:50 Last Admin: 02/25/20 18:08 Dose: Not Given Documented by: Dexamethasone (Dexamethasone) 6 mg IV .STK-MED ONE Stop: 02/29/20 10:38 Dextrose/Water (Dextrose 50% In Water) 50 ml IV ASDIRECTED PRN PRN Reason: Hypoglycemia Glucagon (Glucagen) 1 mg IM ASDIRECTED PRN PRN Reason: Hypoglycemia Sodium Chloride (Normal Saline) 1,000 mls @ 75 mls/hr IV ASDIRECTED [facility] Last Admin: 02/25/20 17:04 Dose: 75 mls/hr Documented by: Remdesivir 200 mg/ Sodium (Chloride) 210 mls @ 210 mls/hr IV ONETIME ONE Stop: 02/25/20 15:36 Last Admin: 02/25/20 19:47 Dose: 210 mls/hr Documented by: Remdesivir 100 mg/ Sodium (Chloride) 230 mls @ 230 mls/hr IV Q24H [facility] Stop: 02/29/20 09:01 Last Infusion: 02/28/20 10:40 Dose: Infused Documented by: Azithromycin 500 mg/ Sodium (Chloride) 250 mls @ 250 mls/hr IV Q24H [facility] Last Infusion: 02/27/20 17:42 Dose: Infused Documented by: Sterile Water (Sterile Water For Injection) Confirm Administered Dose 40 mls @ as directed .ROUTE .STK-MED ONE Stop: 02/25/20 18:25 Last Admin: 02/25/20 20:21 Dose: Not Given Documented by: Remdesivir 100 mg/ Sodium (Chloride) 230 mls @ 230 mls/hr IV Q24H [facility] Stop: 02/29/20 10:29 Last Admin: 02/29/20 09:05 Dose: 230 mls/hr Documented by: Sodium Chloride (Normal Saline) 500 mls @ 125 mls/hr IV BOLUS [facility] Stop: 03/01/20 20:59 Last Infusion: 03/01/20 22:44 Dose: Infused Documented by: Insulin Human Lispro (Humalog) 12 unit SUBCUT ONETIME ONE Stop: 03/01/20 16:54 Last Admin: 03/01/20 17:00 Dose: 12 units Documented by: Potassium Chloride (Klor-Con 10) 40 meq PO ONETIME ONE Stop: 02/25/20 15:41 Last Admin: 02/25/20 17:00 Dose: 40 meq Documented by: - Exam HEENT: Reports: Pupils Equal, Pupils Reactive, EOMI, Mucous Membr. Moist/[place] Neck: Reports: Supple Lungs: Reports: Clear to Auscultation, Normal Respiratory Effort Cardiovascular: Reports: Regular Rate, Regular Rhythm GI/Abdominal Exam: Normal Bowel Sounds, Soft, Non-Tender, No Organomegaly, No Distention, No Abnormal Bruit, No Mass, Pelvis Stable Back Exam: Reports: Normal Inspection, Full Range of Motion Extremities: Normal Inspection, Normal Range of Motion, Non-Tender, No Pedal Edema, Normal Capillary Refill Skin: Reports: Warm, Dry, Intact Neurological: Reports: No New Focal Deficit Psy/Mental Status: Reports: Alert, Normal Affect, Normal Mood
== END 2020-03-02 16:20 | disposition home or self-care (01) | DRG 137 ==
LOC: DL.ED 11:43 → DL.MS 15:10
PROVIDERS: ADMIT Internal Medicine; ATTEND Internal Medicine
PROC: 8E0ZXY6 Isolation (ICD-10-PCS; principal; 2020-02-25)
PROC: XW033E5 Introduction of Remdesivir Anti-infective into Peripheral Vein, Percutaneous Approach, New Technology Group 5 (ICD-10-PCS; 2020-02-25)
PROC: XW033F5 Introduction of Other New Technology Therapeutic Substance into Peripheral Vein, Percutaneous Approach, New Technology Group 5 (ICD-10-PCS; 2020-02-25)
DX: U07.1 COVID-19 (principal); J12.89 Other viral pneumonia; J96.01 Acute respiratory failure with hypoxia; I10 Essential (primary) hypertension; E87.6 Hypokalemia
CPT/HCPCS: 36415; 71045; 80048; 80053; 80076; 81001; 82728; 82962; 83605; 83615; 84145; 84484; 85025; 85379; 86140; 86900; 86901; 87040; 93005; 99284; 99285-25; A9270-GY; J0456; J0696; J1100; J1650; J1815-GY; J7030; J7040; J7050